=== PATIENT | male | born 1975 | race Caucasian/White ===

== ENCOUNTER 2017-07-12 15:46 | Emergency (ER) | payer MEDICAID ==
[~2017-07-12] VITALS: Ht 193 cm; Wt 86.2 kg
[2017-07-12 16:22] VITALS: BP 150/110
== END 2017-07-12 17:10 | disposition home or self-care (01) ==
LOC: ER 15:52
DX: J20.9 Acute bronchitis, unspecified (principal); F17.210 Nicotine dependence, cigarettes, uncomplicated
CPT/HCPCS: 82962